=== PATIENT | male | born 1950 | race African-American/Black ===

== ENCOUNTER → 2018-09-02 | Day surgery (SDC) | payer OTHER ==
[2018-09-01 09:24] LABS: BASOPHILS # (AUTO) 0.1 (0.0-0.1); BASOPHILS % 0.7 % (0.0-1.0); EOSINOPHILS # (AUTO) 0.4 (0.0-0.4); HEMATOCRIT 42.4 % (38.2-49.6); HEMOGLOBIN 14.1 g/dL (14.0-18.0); LYMPHOCYTES # (AUTO) 2.2 (1.0-3.2); LYMPHOCYTES % 25.4 % (18.0-39.1); MEAN CORPUSCULAR HEMOGLOBIN 32.3 pg (28-32); MEAN CORPUSCULAR HGB CONC 33.3 g/dL (31-35); MONOCYTES # (AUTO) 0.6 (0.2-0.8); MONOCYTES % 6.8 % (4.4-11.3); NEUTROPHILS # (AUTO) 5.3 (2.1-6.9); NEUTROPHILS % 61.9 % (38.7-80.0); PLATELET COUNT 210 x10e3/uL (140-360); RED BLOOD COUNT 4.37 x10e6/uL (4.3-5.7); RED CELL DISTRIBUTION WIDTH 12.4 % (11.7-14.4)
[~2018-09-02] MED LIST: ACETAZOLAMIDE250 MG PO; INDAPAMIDE1.25 MG PO; LEVOTHYROXINE112 MCG PO; LIDOCAINE HCL 2% LOCAL INJ 5 ML SDV VIAL INJ ONE; NEXIUM40 MG PO; NORVASC5 MG PO; PROPOFOL IV EMULSION 10 MG/ML 20 ML VIAL ONE; VITAMIN D250000 UNIT PO; WHELCHOL PO
[2018-09-02 09:40] VITALS: BP 160/88
--- NOTE | 2018-09-11 00:54 | Operative Report ---
DATE OF PROCEDURE: 09/02/2018 SURGEON: Oswaldo Grayson MD PREOPERATIVE DIAGNOSIS: Abdominal pain, history of colon polyp. POSTOPERATIVE DIAGNOSIS: Scattered diverticula, no colon polyps found, anal cryptitis present. video colonoscope was inserted in to the patient's rectum and advanced without difficulty to the level of the cecum. The study of the colon was taken from the level of the cecum, back down to the rectum, scattered diverticula were present throughout the colon without evidence of diverticulitis. As the colonoscope was withdrawn from the patient's rectum, anal cryptitis was noted, just irritation of the anal folds. No colon polyps were found. The colonoscope was withdrawn from the patient's rectum and the procedure was ended. In completion, we had findings of diverticulosis. No new colon polyps found and anal cryptitis. Plan is to keep the patient on high-fiber diet and to follow up as needed in the office. Oswaldo Grayson MD SAF/MODL /[id number]
== END | disposition home or self-care (01) ==
LOC: OR 06:34
PROVIDERS: ATTEND Internal Medicine Gastroenterology
DX: R10.9 Unspecified abdominal pain (principal); K57.30 Diverticulosis of large intestine without perforation or abscess without bleeding; K62.89 Other specified diseases of anus and rectum; K21.9 Gastro-esophageal reflux disease without esophagitis; G47.33 Obstructive sleep apnea (adult) (pediatric); I10 Essential (primary) hypertension; E03.9 Hypothyroidism, unspecified; Z88.6 Allergy status to analgesic agent; Z01.810 Encounter for preprocedural cardiovascular examination; Z01.812 Encounter for preprocedural laboratory examination; Z68.42 Body mass index [BMI] 45.0-49.9, adult
CPT/HCPCS: 36415; 45378; 85025; 93005; J2001; J2704